=== PATIENT | female | born 2000 | race Caucasian/White ===

== ENCOUNTER 2025-01-24 22:21 | Emergency (ER) | payer OTHER, SELFPAY ==
[2025-01-24 22:22] VITALS: BP 124/91
[2025-01-24 22:50] LABS: % Basophils 0.5 % (0-2); % Eosinophils 0.6 % (0-6); % Immature Granulocytes 0.2 % (0-0.5); % Lymphocytes 36.2 % (20.5-51.1); % Monocytes 6.7 % (1.7-9.3); % Neutrophils 55.8 % (42.2-75.2); Absolute Lymphocytes 2.3 10^3/uL (1.2-3.4); Absolute Monocytes 0.4 10^3/uL (0.1-0.6); Absolute Neutrophils 3.6 10^3/uL (1.4-6.5); Hematocrit 37.1 % (37.0-47.0); Hemoglobin 12.8 g/dL (12.0-16.0); Mean Corp Hgb Conc. 34.5 g/dL (33.0-37.0); Mean Corpuscular Hgb 30.3 pg (27.0-31.0); Mean Corpuscular Volume 87.9 fL (81.0-99.0); Nucleated Red Blood Cells % 0 %; Platelet Count 177 10^3/uL (130-400); Red Blood Cell Count 4.22 10^6/uL (4.20-5.40); Red Cell Dist. Width 12.5 % (11.5-14.5); White Blood Cell Count 6.4 10^3/uL (4.8-10.8)
[2025-01-24 23:01] LABS: HCG, Serum Qualitative Screen Negative
[2025-01-24 23:04] LABS: ALT (SGPT) 15 U/L (0-35); AST (SGOT) 20 U/L (14-36); Albumin 4.7 g/dl (3.5-5.0); Alkaline Phosphatase 54 U/L (38-126); Blood Urea Nitrogen 13 mg/dl (7-17); Carbon Dioxide 22 mmol/L (22-30); Chloride 109 mmol/L (98-107); Glucose 97 mg/dl (70-99); Potassium 4.4 mmol/L (3.5-5.1); Sodium 141 mmol/L (135-145); Total Bilirubin 0.6 mg/dl (0.2-1.3); Total Protein 7.5 g/dl (6.3-8.2); eGFR > 60.00
[2025-01-24 23:08] VITALS: BP 124/96
[2025-01-24 23:09] VITALS: BMI 20.4
--- NOTE | 2025-01-24 23:47 | ED.GENMED ---
History of Present Illness
General
Chief Complaint: Numbness
Source: patient and significant other
Time Seen by Provider: 01/24/25 23:44
History of Present Illness
History of Present Illness:
24-year-old female who presents after she was not really feeling quite herself in the afternoon. She went out for a walk and walk [place] miles at the park. She then started noticed around 7 PM that she has tingling around her mouth bilaterally.
She also noticed it at her chin level. Patient significant other reports that he noticed her pupils were very dilated. Patient now feels a little better but still about the same. No headaches. She does have a history of vestibular migraines and
was worried that was the beginning of an event but she never got dizzy like she typically does. No neck pain. No vision changes. No motor weakness.
Past History
Past History
ED Past Medical History: Other (Vestibular migraines, asthma, endometriosis)
Phy Exam
Physical Exam
Physical Exam:
CONSTITUTIONAL Patient alert and oriented to person, place and time. Well-appearing. Vital signs reviewed.
HEAD atraumatic, normocephalic.
EYES eyelids normal to inspection, Extraocular muscles intact, Conjunctiva normal, Sclera normal.
NECK normal range of motion, Trachea midline, no jugular venous distention.
RESPIRATORY CHEST No respiratory distress noted, Chest expansion equal, Bilateral breath sounds clear.
CARDIOVASCULAR regular rate and rhythm, Heart sounds normal.
ABDOMEN abdomen nontender, Bowel sounds normal. No distention.
BACK normal inspection, no obvious deformities
UPPER EXTREMITY range of motion normal, Motor strength normal, no cyanosis, no edema.
LOWER EXTREMITY range of motion normal, Motor strength normal, no cyanosis, no edema.
NEURO Speech normal, No focal motor deficits, Guerda coma scale 15, Memory normal, Cranial Nerves intact to screening exam. Normal [id number]. No pronator drift.
SKIN skin warm, dry, and normal in color.
Course
Orders/Labs/Results
Orders:
Orders
01/24/25 22:29
Electrocardiogram (*1) Urgent
Reason for Study: Palpitations
EKG- Treatment ONCE
Test Result ONCE
01/24/25 22:37
Complete Blood Count/With Diff Urgent
Comprehensive Metabolic Panel Urgent
HCG, Serum Qualitative Screen Urgent
Lyme Progressive Urgent
Comment: ADD ON
01/25/25 00:32
Add On- LAB Urgent
Tests Added?: Lyme progressive
Abnormal Lab Results
01/24/25
22:37
Chloride 109 H mmol/L
(98-107)
01/24/25 22:37
01/24/25 22:37
Vital Signs
Initial and Last Documented VS:
Initial Vital Signs
Temp Pulse Resp BP Pulse Ox
97.9 F 81 18 124/91 100
01/24/25 22:22 01/24/25 22:22 01/24/25 22:22 01/24/25 22:22 01/24/25 22:22
Last Documented Vital Signs
Temp Pulse Resp BP Pulse Ox
97.9 F 71 16 113/78 100
01/24/25 22:22 01/25/25 00:15 01/25/25 00:15 01/25/25 00:00 01/25/25 00:00
MDM/Problems Addressed
Differential Diagnosis Includes:
Lyme disease, electrolyte disturbance, migraine, stroke, environmental exposure
MDM/Problems Addressed:
Facial tingling
*Pulse Oximetry
Patient hypoxic: no
*EKG
Interpreted by ED Provider?: Yes
Interpretation: normal
Rate: normal
Rhythm: sinus
QRS Pattern: normal QRS
Ischemia: no ischemia
*Die Trimmer Interpretation
Rate: normal
Interpretation: normal
Rhythm: sinus
*Critical Care Note
Total Time (30-74mins, 75-104mins- exclusive of procedures): Not Applicable
Data Reviewed
Source: patient and significant other
Further Testing Considered But Not Given:
Consider CT of the head but neurologic assessment normal and symptoms are bilateral. Add Lyme testing
Patient Management
Escalation/DeEscalation of care consider admission/obs:
Patient appears well. Exam normal. Added Lyme testing. Labs unremarkable. EKG unremarkable. Okay for discharge
ED Attending Note
-
Portions of this chart may have been created with voice recognition software.� Occasional wrong word or��sound alike� substitutions may have occurred due to the inherent limitations of voice recognition software.
Discharge Plan
Departure
Patient Disposition: Home (Routine Discharge)
Date of Disposition: 01/25/25
Time of Disposition: 00:47
Patient with high blood pressure during this ER visit?: No
Discharge Problem:
Facial tingling sensation
Instructions: Paresthesia (DC)
Referrals:
ZINA MILTON MD [Family Provider] -
Activity Restrictions/Additional Instructions:
Please see your doctor in the next 1 week for follow-up and evaluation of symptoms persist. If symptoms do persist, further workup may be necessary. Return immediately for chest pain, shortness of breath, headache or any other concerns
Interventions
Interventions:
*Risk Screen - Suicide Last Done: 01/24/25 22:27
*General Assessment Last Done: 01/24/25 22:27
*Neglect/Abuse Screening Last Done: 01/24/25 23:10
*ED- Fall Risk Assessment Last Done: 01/24/25 23:10
*ED COVID-19 Vaccine History Last Done: 01/24/25 22:27
ED- Neurological Assessment Last Done: 01/24/25 23:10
Discharge Date and Time
Print Language: QATARI
[2025-01-25] VITALS: BP 113/78
[2025-01-25 01:07] VITALS: BP 115/67
== END 2025-01-25 01:17 | disposition home or self-care (01) ==
LOC: EMR 22:21
PROVIDERS: EMERGENCY PHYSICIAN Emergency Medicine; FAMILY PHYSICIAN Student in an Organized Health Care Education/Training Program
DX: R20.2 Paresthesia of skin (principal)
CPT/HCPCS: 99283; 80053; 84703; 85025; 86618; 93005